=== PATIENT | male | born 1985 | race Caucasian/White ===

== ENCOUNTER 2019-01-17 10:58 | Emergency (ER) | payer OTHER, SELFPAY ==
[2019-01-17 11:02] VITALS: BP 166/108; PULSE 92; RESP 16; TEMP 36.7; O2SAT 99; BMI 30.7
--- NOTE | 2019-01-17 11:14 | ED.VISSUMM ---
- ER Visit Summary Date of Service: 01/17/19 Chief Complaint: Right hand injury History of Present Illness: The patient is a 33 M [id number] presenting with right hand crush injury that happened at work this morning. He was inserting a shaft into a machine and it struck his thumb and index finger. Onset was sudden. He has 2 lacerations one on the thumb, and one on the index finger but no other breaks in his skin. He denies paresthesias. He does have pain in his right thumb with palpation and range of motion. Last tetanus is unknown. Physical Examination: His hands are covered in grease and oil. There are also small fragments of metal and dust from cutting metal on his hand. He has a 4-5 cm superficial laceration on the palmar aspect of the right proximal thumb and another superficial laceration on the palmar aspect of the right index finger. He has a normal distal neurovascular examination including two-point determination at 6 mm in full flexion and extension. Test Results: An x-ray was interpreted independently by me is negative for acute fracture. Emergency Department Course and Treatment: No obvious fracture on x-ray. Formal radiology read is still pending. Treatment Plan: His wounds were cleansed extensively. There is a large amount of grease on his hand. He was soaked and scrubbed. He has 2 small lacerations but both are less than 1/2 cm and fairly superficial. We discussed repairing them with sutures however given the small size and the fact that they are not in a cosmetic area, we both agree that it is safest to let these heal by secondary intention to reduce his risk of infection. Wound care precautions were explained. Tetanus was updated. He was given a dose of Keflex. Dressings were placed. Work return precautions were provided. He will be placed on Keflex for 3 days to reduce his chance of infection. Signs of infection were explained at length. Disposition: Home stable Impression: Initial encounter right hand contusion, initial encounter right hand lacerations This note was generated with [employer] dictation software. It may contain incorrect words, spelling, and punctuation that were not noted in review of the chart prior to signing ED Disposition - Plan for ED Patient: Instructions: ED Laceration Hand Prescriptions: Cephalexin [Keflex] 500 mg PO BID #6 capsule Referrals: [facility] [GROUP OF PHYSICIANS] -
--- NOTE | 2019-01-17 11:27 | RAD_ITS ---
STUDY: X-RAY - RIGHT HAND REASON FOR EXAM: Male, 33 years old. Injury. TECHNIQUE: 3 view(s) of the hand. COMPARISON: None. FINDINGS: No acute fracture, dislocation or osseous destruction. No significant joint space narrowing. No significant productive changes. High density material at the skin surface of the third through fifth digits. RAD/Hand Min 3 Views IMPRESSION: Right hand intact High density material at the skin surface of the third through fifth digits Electronically Signed: Jesús Ruiz DO at 13:10 EDT Tel , Service support ,
[2019-01-17] MEDS: Diphth,Pertuss(Acell),Tet Vac 0.5 ML Vial IM (11:33)
[2019-01-17] MEDS: Cephalexin 250 MG Capsule 500 MG PO (11:34)
== END 2019-01-17 14:03 | disposition home or self-care (01) ==
LOC: ED 12:29
PROVIDERS: Emergency Provider Emergency Medicine
DX: S61.210A Laceration without foreign body of right index finger without damage to nail, initial encounter (principal); S61.011A Laceration without foreign body of right thumb without damage to nail, initial encounter; S60.221A Contusion of right hand, initial encounter; Z23 Encounter for immunization; Z79.899 Other long term (current) drug therapy; W22.8XXA Striking against or struck by other objects, initial encounter; Y93.89 Activity, other specified; Y92.89 Other specified places as the place of occurrence of the external cause; Y99.0 Civilian activity done for income or pay
CPT/HCPCS: 73130; 90715; 99283